=== PATIENT | male | born 2005 | race Caucasian/White ===

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

== ENCOUNTER 2023-12-27 16:25 | Emergency (ER) | payer OTHER, SELFPAY ==
--- NOTE | 2023-12-27 16:29 | XR_ITS ---
WS: [id number] Examination: XR foot LT min 3V* [id number] Reason for Exam: foot pain Date: December 27, 2023 Comparison: None. Findings: There is no significant soft tissue swelling The bone density is maintained. I see no fracture or dislocation. Impression: No acute bony abnormality of the left foot is identified.
[2023-12-27 16:37] VITALS: BP 115/69; PULSE 96; RESP 16; TEMP 36.7; O2SAT 97; BMI 23.1
--- NOTE | 2023-12-27 17:00 | W.ED.EXTPRO ---
HPI - Extremity Problem General: Chief complaint: Extremity Injury, Lower Stated complaint: left foot pains Time Seen by Provider: 12/27/23 16:42 Source: patient Mode of arrival: ambulatory Limitations: no limitations History of Present Illness: Patient is a 18-year-old male presents to ED today for evaluation of an injury that occurred while he was at [employer]. Patient states he was climbing a telephone pole and he accidentally struck his left foot with a gaff which is a sharp clawlike projection of his boots that normally penetrates the telephone pole while climbing. States it created a very small puncture site to the posterior aspect of his left foot. He is ambulatory here without difficulty or assistance. Last tetanus is up-to-date. MD Complaint: extremity pain Onset (ago): hour(s) Location: left and lower extremity (foot) Radiation: none Relieving factors: nothing Exacerbating factors: nothing Associated symptoms: Reports no associated symptoms Review of Systems Musc: Reports: extremity pain (small puncture wound to L foot); Denies: extremity swelling, joint pain or joint swelling Skin/Breast: Reports: other (puncture wound) Neuro: Denies: numbness in extremities, weakness in extremities or sensory changes [facility] ED PFSH: Medical History No active medical problems Surgical History History of knee surgery left-2019 Scope repair MPFL Family History Other Diabetes Hypertension Denies family history of Cancer Stroke Social History Smoking and tobacco/nicotine status: never used tobacco/nicotine Second hand smoke exposure: No Alcohol intake: never Substance/Drug Use: unknown Adopted: No Caregiver/support person: No Lives independently: Yes Household members: family Housing: House Marital status: Single Highest education level completed: High School Graduate service: No Current occupational status: student Current occupational exposures/hazards: No Pets and animals: Yes Pets & animals: dog(s) Do you think of yourself as: Straight/Heterosexual Current gender identity: Male Physical Exam Const: COMMON NORMALS: no acute distress, average body habitus, patient oriented x3, no limitations, healthy appearing, alert and well nourished Extremity: COMMON NORMALS: full ROM and capillary refill normal GENERAL: Yes normal exam except as noted Feet Right: 1. extremely small 1.5mm puncture site L posterior lateral foot; superficial Neuro: COMMON NORMALS: patient oriented x3, moves all extremities, no focal motor deficits and no sensory deficits noted SENSORIUM/ORIENTATION: Yes alert Course Vital Signs: Vital signs: Vital Signs Temperature 98.0 F 12/27/23 16:37 Pulse Rate 96 12/27/23 16:37 Respiratory Rate 16 12/27/23 16:37 Blood Pressure 115/69 12/27/23 16:37 Pulse Oximetry 97 12/27/23 16:37 Oxygen Delivery Me thod Room Air 12/27/23 16:37 MDM - Extremity (Nontraumatic) Medical Decision Making XR was ordered from triage. This was ultimately not required based on clinical assessment. He has a very small puncture wound to the left posterior lateral foot. Recommend keeping clean and avoiding infection. XR interpretation done by ED provider, pending radiology final review Discharge Plan Discharge Patient Disposition: Home Clinical Impression: Puncture wound of foot Qualifiers: Encounter type: initial encounter Laterality: left Qualified Code(s): S91.332A - Puncture wound without foreign body, left foot, initial encounter Condition: Stable Prescriptions: No Action No Known Home Medications Discharge Orders: Discharge ED (Routine); Ordered 12/27/23 Ordered By: Bhumi Garcia Referrals: Som Rm, [employer] [Primary Care Provider] - Activity Restrictions/Additional Instructions: Keep clean with warm soap and water multiple times a day. This should heal in the next few days. Although unlikely, monitor for signs of infection such as redness, swelling, purulent drainage, streaking up your foot or leg, fevers, or any other concerns you may have. Coding Level of Care Code ED Registered Dental Assistant Rda for Patricia Peterson
== END 2023-12-27 17:11 | disposition home or self-care (01) ==
PROVIDERS: Emergency Provider Physician Assistant; PCP Nurse Practitioner
DX: S91.332A Puncture wound without foreign body, left foot, initial encounter (principal); W26.8XXA Contact with other sharp object(s), not elsewhere classified, initial encounter
CPT/HCPCS: 73630; 99283